=== PATIENT | female | born 1950 | race Caucasian/White ===

== ENCOUNTER 2017-12-27 15:43 | Observation (INO) | payer BC, MEDICARE ==
[2017-12-27] MEDS ORDERED: Ondansetron HCl/PF 4 MG/2 ML Vial ONE (16:09)
[2017-12-27 16:27] LABS: #Eosinphils 0.3 thou/uL (0.0-0.7); #Lymphocytes 0.9 thou/uL (1.20-3.40); #Monocytes 0.8 thou/uL (0.11-0.59); #Neutrophils 7.1 thou/uL (1.40-6.50); %Basophils 0.5 % (0.0-1.0); %Eosinophils 3.5 % (0.0-10.0); %Lymphocytes 9.7 % (21.0-51.0); %Monocytes 8.5 % (0.0-10.0); %Neutrophils 77.9 % (42.0-75.0); Hemoglobin 11.5 g/dL (12.0-16.0); Mean Corpuscular Hemoglobin 28.3 pg (27.0-31.0); Mean Corpuscular Volume 85.9 fL (78.0-98.0); Mean Platelet Volume 9.2 fL (7.4-10.4); Platelet Count 236 thou/uL (130-400); RBC Distribution Width 12.6 % (11.5-14.5); Red Blood Cell (RBC) Count 4.06 mill/uL (4.20-5.40); White Blood Cell (WBC) Count 9.1 thou/uL (4.8-10.8)
[2017-12-27 16:47] LABS: ALT (SGPT) 83 U/L (8-55); AST (SGOT) 64 U/L (5-34); Albumin 3.6 g/dL (3.4-4.8); Alkaline Phosphatase 227 U/L (40-150); Anion Gap 14 mmol/L (10-20); BUN (Urea Nitrogen) 22 mg/dL (9.8-20.1); Bilirubin, Total 1.2 mg/dL (0.2-1.2); Calc. Creatinine Clearance 0 mL/min (70-130); Calcium 9.3 mg/dL (7.8-10.44); Carbon Dioxide 22 mmol/L (23-31); Chloride 100 mmol/L (98-107); Estimated GFR-MDRD 40; Globulin 3.1 g/dL (2.4-3.5); Glucose 153 mg/dL (80-115); Protein, Total 6.7 g/dL (6.0-8.3); Sodium 133 mmol/L (136-145)
[2017-12-27 16:48] LABS: Bilirubin Negative (Negative); Blood, Urine Negative (Negative); Clarity CLEAR (Clear); Glucose, Urine (Dipstick) Negative (Negative); Leukocyte Small (Negative); Nitrite Negative (Negative); Protein, Urine (Dipstick) Negative (Neg-Trace); Specific Gravity, Urine 1.009 (1.002-1.036); Urobilinogen 0.2 mg/dL (0.2-1.0); pH, Urine 5.5 (5.0-9.0)
[2017-12-27 16:50] LABS: Bacteria/HPF None Seen HPF (None Seen); Hyaline Casts/LPF 0-3 HYALINE CAST LPF (0-3 Hyaline); Pathc Cast-AUWi Flag 0.43 (0-2.49); Squamous Epithelial 0-3 HPF (0-3); WBC/HPF 0-3 HPF (0-3)
[2017-12-27 16:51] LABS: Troponin I Less than 0.010 ng/mL (< 0.028)
[2017-12-27 16:52] LABS: Potassium 2.9 mmol/L (3.5-5.1)
[2017-12-27] MEDS ORDERED: Potassium Chloride 20 MEQ TAB ONE (16:57)
[2017-12-27] MEDS ORDERED: Potassium Chloride 20 MEQ in Premix Bag 1 BAG IVPB SCH (17:15)
[2017-12-27] MEDS ORDERED: Ondansetron ODT 4 MG TAB SL PRN (20:43)
[2017-12-27] MEDS ORDERED: Ondansetron HCl/PF 4 MG/2 ML Vial IVP PRN ×2 (20:43→21:25)
[2017-12-27] MEDS ORDERED: Dextrose 5 % And 0.9 % NaCl 1,000 ML IV SCH (20:45)
[2017-12-27] MEDS ORDERED: Ondansetron ODT 4 MG TAB PO PRN (21:25)
[2017-12-27] MEDS: Acetaminophen 325 MG TAB PO PRN (22:20)
[2017-12-27] MEDS: Sodium Chloride 0.45% 1,000 ML IV SCH (22:21)
[2017-12-28] MEDS: Acetaminophen 325 MG TAB PO PRN ×3 (03:02→13:15)
[2017-12-28 06:29] LABS: Anion Gap 10 mmol/L (10-20); BUN (Urea Nitrogen) 16 mg/dL (9.8-20.1); Calc. Creatinine Clearance 76 mL/min (70-130); Calcium 8.9 mg/dL (7.8-10.44); Carbon Dioxide 26 mmol/L (23-31); Chloride 103 mmol/L (98-107); Estimated GFR-MDRD 52; Glucose 139 mg/dL (80-115); Potassium 3.2 mmol/L (3.5-5.1); Sodium 136 mmol/L (136-145)
[2017-12-28] MEDS: Sodium Chloride 0.45% 1,000 ML IV SCH ×2 (07:45→17:36)
[2017-12-28] MEDS ORDERED: Prevnar 13-Val Conj/PF 0.5 ML SYRINGE IM ONE (09:00)
[2017-12-28] MEDS: Aspirin 81 mg Enteric Coated Tablet PO SCH (09:35)
[2017-12-28] MEDS: Potassium Chloride 20 MEQ TAB PO SCH ×3 (09:35→17:34)
[2017-12-28] MEDS: metFORMIN XR 500 MG TAB PO SCH ×2 (09:35→17:34)
[2017-12-28] MEDS: hydrALAZINE 25 MG TAB PO SCH ×2 (13:12→19:50)
[2017-12-28] MEDS: Losartan/Hydrochlorothiazide 100 mg/25 mg Tablet PO SCH (13:13)
[2017-12-28 15:38] VITALS: BMI 37.1
[2017-12-28] MEDS ORDERED: traMADol HCl 50 MG TAB PO PRN (18:17)
[2017-12-28] MEDS ORDERED: Atorvastatin Calcium 20 MG TAB PO SCH (21:00)
--- NOTE | 2017-12-29 05:08 | HP ---
DATE OF ADMISSION: 12/27/2017 REASON FOR ADMISSION AND CHIEF COMPLAINT: Fever, nausea, vomiting, diarrhea, and weakness. HISTORY OF PRESENT ILLNESS: Ms. Salter is a 67-year-old female with past medical history of hypertension, diabetes mellitus, developed fever actually started about 4-5 days ago. The patient went to the emergency room in the weekend. If it is evaluated, workup was negative, so patient was released and sent home, but going on patient continued to have fevers with headache, nausea, vomiting, diarrhea, and feeling very weak, unable to eat anything. The patient was seen in the office and was started on Tamiflu. The flu screen was negative because of her symptoms with her body aches, fever, and weakness, but patient says her weakness was getting worse, unable to eat anything, unable to ambulate because of weakness, so patient then came to the emergency room again. The patient states she still had a fever but she did not have any fever in the ER, blood pressure was 107/60. She was found to be very dehydrated and she was hypokalemic as well. Her potassium was 2.9 and creatinine is 1.33, so she was given KCl replacement and started on IV fluid normal saline and admitted for further evaluation and management. PAST MEDICAL HISTORY: 1. Diabetes mellitus. 2. Hypertension. 3. Hyperlipidemia. PAST SURGICAL HISTORY: 1. Status post cholecystectomy. 2. Status post hysterectomy. 3. Status post bilateral knee surgeries. CURRENT MEDICATIONS: Hydralazine 50 b.i.d., losartan with hydrochlorothiazide 100/25 daily, metformin 500 b.i.d., simvastatin 40 mg daily, aspirin 81 mg daily , Prilosec 20 mg daily. ALLERGIES: VICODIN. FAMILY HISTORY: Nothing of interest. SOCIAL HISTORY: The patient lives with family. No history of smoking. No history of alcohol. REVIEW OF SYSTEMS: Cardiovascular: No chest pain or shortness of breath. Respiratory: No fever or cough. Gastrointestinal: Has nausea, vomiting, abdominal pain, and diarrhea. Central Nervous System: No dizziness, has headache. PHYSICAL EXAMINATION: GENERAL: The patient is alert, awake, oriented x3. VITAL SIGNS: Temperature 98, pulse 73, respirations 20, blood pressure 102/60. HEENT: Head is normocephalic, atraumatic. Pupils equal and reactive to light. Nasopharynx is pale and dry. Hard and soft palate, no lesions seen. SKIN: Turgor is decreased. NECK: Supple. No JVD. LUNGS: Breath sounds diminished bilaterally. Percussion not dull bilaterally. No rales, no rhonchi. HEART: S1, S2 regular. ABDOMEN: Soft, diffusely tender. No guarding, no rigidity. Bowel sounds present. RECTAL: Deferred. CENTRAL NERVOUS SYSTEM: The patient is alert, awake, oriented x3. Motor system power 4/5 in all extremities. Deep tendon reflexes 2+ bilaterally. Plantar downgoing. Sensory intact. LABORATORY DATA AND X-RAY FINDINGS: CBC shows WBC 9, hemoglobin 11.5, hematocrit 35, platelets 236. Metabolic panel: Sodium 133, potassium 2.9, chloride 100, CO2 of 22, urea nitrogen 22, creatinine 1.33, glucose 153. AST 64 , ALT 83, alkaline phosphate 227. IMAGING: Chest x-ray was done a week ago was negative. EKG showed normal sinus rhythm, no acute ST-T wave changes seen. ASSESSMENT: 1. Severe hypokalemia. 2. Acute kidney injury with severe dehydration. 3. Generalized weakness. 4. Fever, possibly viral. 5. Gastroenteritis, possibly viral. 6. Hypotension. 7. Diabetes mellitus. PLAN: 1. Vital signs q.4 hours. 2. Activity: As tolerated. 3. Allergies: VICODIN. 4. Diet: ADA. 5. IV fluids half normal at 100 mL per hour. 6. Continue home meds except blood pressure medications. We will replace KCl and we will monitor for the fever. MTDD
[2017-12-29 06:01] LABS: #Eosinphils 0.5 thou/uL (0.0-0.7); #Lymphocytes 1.7 thou/uL (1.20-3.40); #Monocytes 0.8 thou/uL (0.11-0.59); #Neutrophils 6.7 thou/uL (1.40-6.50); %Basophils 0.2 % (0.0-1.0); %Eosinophils 4.7 % (0.0-10.0); %Lymphocytes 17.8 % (21.0-51.0); %Monocytes 8.2 % (0.0-10.0); Hemoglobin 10.2 g/dL (12.0-16.0); Mean Corpuscular HGB CONC 32.6 g/dL (32.0-36.0); Mean Corpuscular Hemoglobin 28.3 pg (27.0-31.0); Mean Corpuscular Volume 86.8 fL (78.0-98.0); Mean Platelet Volume 8.6 fL (7.4-10.4); Platelet Count 214 thou/uL (130-400); RBC Distribution Width 12.7 % (11.5-14.5); White Blood Cell (WBC) Count 9.7 thou/uL (4.8-10.8)
[2017-12-29 06:26] LABS: Anion Gap 12 mmol/L (10-20); BUN (Urea Nitrogen) 12 mg/dL (9.8-20.1); Calc. Creatinine Clearance 85 mL/min (70-130); Calcium 8.8 mg/dL (7.8-10.44); Carbon Dioxide 23 mmol/L (23-31); Chloride 103 mmol/L (98-107); Estimated GFR-MDRD 59; Glucose 164 mg/dL (80-115); Potassium 3.5 mmol/L (3.5-5.1); Sodium 134 mmol/L (136-145)
[2017-12-29] MEDS: Sodium Chloride 0.45% 1,000 ML IV SCH (06:30)
[2017-12-29] MEDS: metFORMIN XR 500 MG TAB PO SCH ×2 (08:54→17:01)
[2017-12-29] MEDS: Aspirin 81 mg Enteric Coated Tablet PO SCH (08:54)
[2017-12-29] MEDS: Losartan/Hydrochlorothiazide 100 mg/25 mg Tablet PO SCH (08:54)
[2017-12-29] MEDS: hydrALAZINE 25 MG TAB PO SCH (08:55)
[2017-12-29 12:23] VITALS: BP 121/64; TEMP 98.7
[2017-12-29] MEDS ORDERED: Potassium Chloride 20 MEQ TAB PO SCH (16:45)
--- NOTE | 2017-12-30 16:26 | EKG ---
Test Reason : Blood Pressure : / mmHG Vent. Rate : 067 BPM Atrial Rate : 067 BPM P-R Int : 134 ms QRS Dur : 074 ms QT Int : 420 ms P-R-T Axes : 048 -03 020 degrees QTc Int : 443 ms Normal sinus rhythm Low voltage QRS Nonspecific ST abnormality Abnormal ECG Confirmed by DOUG URBINA ([id number]), editor at large JAIMIE RANDHAWA ([id number]) on 12/30/2017 4:26:17 PM Referred By: Confirmed By:DOUG URBINA
--- NOTE | 2018-01-01 14:00 | DIS ---
DATE OF ADMISSION: 12/27/2017 DATE OF DISCHARGE: 12/29/2017 ADMITTING DIAGNOSES: 1. Severe hypokalemia. 2. Acute kidney injury. 3. Severe dehydration. 4. Generalized weakness. 5. Fever, possibly viral. 6. Gastroenteritis, possibly viral. 7. Hypotension. 8. Diabetes mellitus. FINAL DIAGNOSES: 1. Severe hypokalemia, corrected. 2. Acute kidney injury, improved. 3. General weakness, improved. 4. Fever, resolved. 5. Gastroenteritis, resolved. 6. Hypotension, improved. 7. Diabetes mellitus. BRIEF SUMMARY OF HOSPITAL COURSE: Ms. Gaetano Aburto is a 67-year-old female admitted with f ever, abdominal pain, nausea, vomiting, diarrhea. Patient was found to be dehydrated as well as hypo kalemia. Her potassium was 2.9 on admission. She was put on some KCl replacement, it came up to 3.5 . She also had acute kidney injury with a BUN of 22 and creatinine of 1.33. Both came down to florin l with fluid therapy. Patient's nausea and vomiting also resolved. She was started on diet, she is tolerating diet very well, did not have any fever, no abdominal pain. Her hypotension also improved. In view of improvement, the patient is being discharged to home. At the time of discharge, she was stable. Her vital signs were stable. Lungs were clear. Heart sounds regular. Abdomen was soft. No distention, no tenderness. Normal bowel sounds. Rectal exam deferred. Central nervous system: No focal deficits. DISCHARGE MEDICATIONS: Include omeprazole 20 mg daily, aspirin 81 mg daily, metformin 500 b.i.d., hy dralazine 50 b.i.d., losartan 100/25 daily, simvastatin 40 mg daily. DISCHARGE INSTRUCTIONS: Patient is complaining of continued with increased fluid intake and followup next week.
== END 2017-12-29 17:20 | disposition home or self-care (01) ==
LOC: ERS 15:43 → 2SW 19:17
PROVIDERS: ADMIT Internal Medicine; ATTEND Internal Medicine
DX: R50.9 Fever, unspecified (principal); I10 Essential (primary) hypertension; E11.9 Type 2 diabetes mellitus without complications; E78.5 Hyperlipidemia, unspecified; E87.6 Hypokalemia; E86.0 Dehydration; N28.9 Disorder of kidney and ureter, unspecified; K52.9 Noninfective gastroenteritis and colitis, unspecified; Z79.84 Long term (current) use of oral hypoglycemic drugs; Z79.82 Long term (current) use of aspirin; Z79.899 Other long term (current) drug therapy; Z88.5 Allergy status to narcotic agent
CPT/HCPCS: 36415; 36416; 80048; 80053; 81003; 81015; 82553; 83735; 84484; 85025; 90471; 90670; 93005; 96361; 96365; 96366; 96375; G0009; G0378; J2405; J3480

== ENCOUNTER 2018-01-02 18:05 | Inpatient (IN) | payer BC, MEDICARE ==
[~2018-01-02 18:05] MED LIST: ISOVUE-370 76%-LOCM 1 ML ONE; Iopamidol 370 76% 50 ML VIAL FS ONE
[2018-01-02 20:48] LABS: #Basophils 0.1 thou/uL (0.0-0.2); #Eosinphils 0.5 thou/uL (0.0-0.7); #Lymphocytes 1.6 thou/uL (1.20-3.40); #Monocytes 1.1 thou/uL (0.11-0.59); #Neutrophils 9.1 thou/uL (1.40-6.50); %Basophils 0.4 % (0.0-1.0); %Eosinophils 4.3 % (0.0-10.0); %Lymphocytes 12.9 % (21.0-51.0); %Monocytes 8.8 % (0.0-10.0); %Neutrophils 73.6 % (42.0-75.0); Hemoglobin 11.7 g/dL (12.0-16.0); Mean Corpuscular HGB CONC 32.3 g/dL (32.0-36.0); Mean Corpuscular Volume 86.6 fL (78.0-98.0); Mean Platelet Volume 8.6 fL (7.4-10.4); Platelet Count 405 thou/uL (130-400); Red Blood Cell (RBC) Count 4.19 mill/uL (4.20-5.40); White Blood Cell (WBC) Count 12.4 thou/uL (4.8-10.8)
--- NOTE | 2018-01-02 21:06 | RAD ---
CHEST ONE VIEW: 01/02/18 COMPARISON: 12/24/17, 02/07/16. HISTORY: Cough. FINDINGS: Atherosclerosis of the aorta. Slight elongation of the descending thoracic aorta. Normal cardiac silh ouette. The pulmonary vessels are slightly prominent. Costophrenic angles are clear. No masses or con solidation. No pneumothorax or osseous abnormalities. IMPRESSION: 1. Atherosclerosis. 2. Mild pulmonary vascular prominence. Correlate for volume overload. POS: PPP
[2018-01-02 21:10] LABS: ALT (SGPT) 57 U/L (8-55); AST (SGOT) 55 U/L (5-34); Albumin 3.6 g/dL (3.4-4.8); Alkaline Phosphatase 407 U/L (40-150); Anion Gap 14 mmol/L (10-20); BUN (Urea Nitrogen) 17 mg/dL (9.8-20.1); Bilirubin, Total 1.2 mg/dL (0.2-1.2); Calc. Creatinine Clearance 0 mL/min (70-130); Calcium 9.7 mg/dL (7.8-10.44); Carbon Dioxide 25 mmol/L (23-31); Chloride 98 mmol/L (98-107); Estimated GFR-MDRD 41; Globulin 3.5 g/dL (2.4-3.5); Glucose 135 mg/dL (80-115); Lipase 368 U/L (8-78); Potassium 3.9 mmol/L (3.5-5.1); Protein, Total 7.1 g/dL (6.0-8.3); Sodium 133 mmol/L (136-145)
[2018-01-02 21:11] LABS: Troponin I 0.011 ng/mL (< 0.028)
[2018-01-02 21:16] LABS: Bilirubin Negative (Negative); Blood, Urine Negative (Negative); Clarity CLEAR (Clear); Glucose, Urine (Dipstick) Negative (Negative); Leukocyte Moderate (Negative); Nitrite Negative (Negative); Protein, Urine (Dipstick) Negative (Neg-Trace); Specific Gravity, Urine 1.011 (1.002-1.036)
[2018-01-02 21:18] LABS: Bacteria/HPF None Seen HPF (None Seen); Hyaline Casts/LPF 7-10 HYALINE CAST LPF (0-3 Hyaline); Pathc Cast-AUWi Flag 2.47 (0-2.49); RBC/HPF 0-3 HPF (0-3)
[2018-01-03 01:24] VITALS: BMI 36.2
[2018-01-03] MEDS ORDERED: Ondansetron HCl/PF 4 MG/2 ML Vial IVP PRN (01:26)
[2018-01-03] MEDS ORDERED: Ondansetron ODT 4 MG TAB SL PRN (01:26)
[2018-01-03] MEDS ORDERED: Morphine 4 MG/ML VIAL SLOW IVP PRN (01:27)
[2018-01-03] MEDS ORDERED: Acetaminophen 650 MG in Premix Bag 1 BAG IVPB PRN (01:28)
[2018-01-03] MEDS: Lactated Ringer's 1,000 ML IV SCH ×2 (01:38→11:53)
--- NOTE | 2018-01-03 07:20 | CT ---
CT OF ABDOMEN AND PELVIS WITH CONTRAST: Date: 01/02/18 COMPARISON: 02/06/11. INDICATION: Abdominal pain, anorexia. FINDINGS: There is evidence of prior cholecystectomy. Low attenuation of the hepatic parenchyma indicates fatty infiltration. Small bowel is normal in caliber. There is moderate size nonobstructing nephrolithiasi s at the lower pole of the left kidney. There is diffuse vascular disease. Colonic diverticulosis is present. Moderate distention of the urinary bladder is present. There is atelectasis of the visualize d lung bases. No pneumoperitoneum or ascites. Regional lymph nodes are within normal limits of size. There are scattered osseous degenerative changes. IMPRESSION: 1. Nonobstructive moderate size left lower pole renal calculus. 2. Colonic diverticulosis. 3. Hepatic steatosis. POS: MALIKAH
--- NOTE | 2018-01-03 07:36 | ULT ---
ULTRASOUND ABDOMEN COMPLETE: Date: 01/03/18 INDICATION: Abdominal pain, pancreatitis. TECHNIQUE: [place]chaca-scale ultrasound evaluation of the liver, gallbladder, spleen, pancreas, common bile duct, kidne ys, abdominal aorta, and inferior vena cava (IVC). FINDINGS: There is a prominent sized liver with increased echogenicity. Gallbladder is not visualized, indicati ng prior surgical removal. Correlate with surgical history. Spleen is grossly unremarkable. The pancr eas is incompletely visualized due to obscuration by bowel gas, which limits assessment. Common duct measures 7-8 mm, within normal limits of size for status post cholecystectomy. There is a focus of in creased echogenicity in the left kidney, indicating renal calculus. Decreased echogenicity of the low er pole of the left kidney is present, measuring 1.7 cm, compatible with cyst. No ascites. Remainder of the visualized abdomen is grossly unremarkable. IMPRESSION: 1. No acute abnormality identified. 2. Left nephrolithiasis and left renal cyst. 3. Findings which may be related to hepatic steatosis. Correlate with liver function enzymes. 4. Status post cholecystectomy. POS: JOSEPH
[2018-01-03] MEDS ORDERED: Pantoprazole 40 MG VIAL IVP SCH ×3 (09:00→21:00)
[2018-01-03] MEDS: Sodium Chloride 0.9% 1,000 ML IV SCH ×2 (11:51→20:13)
[2018-01-03] MEDS ORDERED: Insulin Regular 300 UNITS/3 ML VIAL SC PRN (19:11)
[2018-01-03] MEDS ORDERED: Dextrose 5% in Water 1,000 ML IV PRN (19:11)
[2018-01-03] MEDS ORDERED: Dextrose 50% Abboject 50 ML SYRINGE IVP PRN (19:11)
[2018-01-03] MEDS: Simvastatin 40 MG TAB PO SCH (20:12)
--- NOTE | 2018-01-03 21:08 | CON ---
DATE OF CONSULTATION: 01/03/2018 REASON FOR CONSULTATION: Abdominal pain, nausea, vomiting. HISTORY: Ms. Salter is a 67-year-old female who was recently discharged from the hospital 2 days ago with what appears to be a viral gastroenteritis characterized as severe nausea and vomiting resultin g in severe hypokalemia and acute kidney injury. She was hydrated with improvement of all lab parame ters and clinical symptoms. However, upon discharge yesterday, she had recurrent mostly upper abdomi nal pain centralized to the epigastrium and medial left upper quadrant. She reports she has had this pain for the last 2 months, characterized as a dull pressure, at times up to 7/10. She has had naus ea and vomiting yesterday. There is no fever or chills with this pain. Today, she feels better. ER evaluation showed a lipase of over 300; however, pancreas appeared normal on CT scan. Imaging studi es showed a common bile duct of 7 mm on ultrasound. Labs showed mild elevation of ALT, AST, and kelton line phosphatase, but normal bilirubin. She did have an esophageal stricture that was dilated by Dr. Menchaca in 2010. Otherwise, she has not had any other previous gastrointestinal issue. PAST MEDICAL HISTORY: 1. Diabetes, adult onset. 2. Hyperlipidemia. 3. Hypertension. 4. Status post cholecystectomy/hysterectomy. 5. Status post knee surgery. 6. Chronic GE reflux. ALLERGIES: VICODIN. MEDICATIONS AT HOME: Include hydralazine, losartan/HCTZ, metformin, simvastatin, aspirin, and Prilos ec. FAMILY HISTORY: Negative for any known GI problem, liver disease, GI malignancy. SOCIAL HISTORY: The patient lives alone. She has no tobacco or alcohol usage. REVIEW OF SYSTEMS: Ten-point review of systems did not show any other pertinent positives or negativ es. PHYSICAL EXAMINATION: VITAL SIGNS: Temperature of 97.7, blood pressure 112/78, pulse of 84. GENERAL: She is alert, conversant, in no distress. HEENT: Anicteric sclerae. Oropharynx is clear. NECK: Supple. CARDIOVASCULAR: Normal S1, S2. Regular rate and rhythm. CHEST: Shows breath sound. ABDOMEN: Protuberant, essentially nontender to palpation. There is no palpable mass or organomegaly , but these are limited secondary to her body habitus. She has active bowel sounds. EXTREMITIES: No edema. LABORATORY DATA: Sodium 133, potassium 3.9, chloride 98, CO2 of 25, creatinine 1.3, bilirubin 1.2, A ST of 55, ALT of 57, alkaline phosphatase 407, lipase of 368. WBC is 12.4, hemoglobin 11.7, platelet count of 405. Ultrasound showed steatosis, CBD 7-8 mm with a left kidney stone, left renal cyst. A bdominal and pelvic CT showed changes of fatty liver and a left kidney stone without any other signif icant finding. ASSESSMENT: 1. Two-month history of upper abdominal pain mostly in the epigastrium, worse in the recent weeks in the setting of chronic gastroesophageal reflux. The patient has not lost any weight. She does have mild elevation in lipase; however, her pancreas appeared normal without any inflammatory changes on CT to suggest pancreatitis. Etiology is uncertain, but could be related to gastroduodenal pathology and less likely biliary issue. 2. Steatosis with likely steatohepatitis. 3. Diabetes/hypertension/hyperlipidemia. RECOMMENDATIONS: 1. We will proceed with EGD in a.m. 2. If negative, we will consider MRCP to evaluate for any choledocholithiasis. 3. Further recommendation to follow pending endoscopic finding.
--- NOTE | 2018-01-04 02:26 | HP ---
DATE OF ADMISSION: 01/03/2018 REASON FOR ADMISSION AND CHIEF COMPLAINT: Abdominal pain, weakness, fever. HISTORY OF PRESENT ILLNESS: Ms. Salter is a 67-year-old female with past medical history o f hypertension, recently admitted for nausea, vomiting, abdominal pain, and fever, came back a.m. wit h the same symptoms. The patient has pain mainly in the epigastric area in the left and also around the umbilical area. After discharge from the hospital, she felt better for a day or two and started having the same problems with abdominal pain, some nausea, not able to eat anything, and feeling very weak. The patient states she has had a fever as well which was low grade, but she did not have any nausea, vomiting, diarrhea, but has not eaten for the last 2 days, so patient came to the emergency r oom where she was evaluated and found to have elevated lipase, possibly pancreatitis. She kept n.p.o ., started on IV fluids and admitted for further evaluation and management. PAST MEDICAL HISTORY: 1. Hypertension. 2. Hepatic steatosis. 3. Diabetes mellitus. 4. Hyperlipidemia. PAST SURGICAL HISTORY: 1. Status post cholecystectomy. 2. Status post hysterectomy. 3. Status post bilateral knee surgeries. CURRENT MEDICATIONS: Patient takes hydralazine 50 mg b.i.d., losartan with hydrochlorothiazide 100/2 5 daily, metformin 500 b.i.d., simvastatin 40 mg daily, aspirin 81 mg, Prilosec 20 mg daily. ALLERGIES: VICODIN. FAMILY HISTORY: Nothing of interest. SOCIAL HISTORY: The patient lives with family. No history of smoking. No history of alcohol intake . REVIEW OF SYSTEMS: Cardiovascular: No chest pain or shortness of breath. Respiratory: No cough or fever. Gastrointestinal: Has abdominal pain, not eating well. Central Nervous System: No headach e. Feels dizzy. PHYSICAL EXAMINATION: GENERAL: The patient is alert, awake, oriented x3. VITAL SIGNS: Temperature 98, pulse 60, respirations 20, blood pressure . HEENT: Head is normocephalic, atraumatic. Pupils are equal and reactive to light. Nasopharynx is p jensen and dry. Hard and soft palate, no lesions seen. SKIN: Skin turgor decreased. NECK: Supple. No JVD. LUNGS: Bilateral air entry present. No rales, no rhonchi. HEART: S1, S2 regular. ABDOMEN: Soft, tender in the epigastric area and umbilical area. No guarding, no rigidity. Bowel s ounds present. RECTAL: Deferred. CENTRAL NERVOUS SYSTEM: No focal deficit. LABORATORY AND X-RAY FINDINGS: CBC shows WBC 12.5, hemoglobin 11, hematocrit 36, platelets 405. Met abolic panel: Sodium 133, potassium 3.9, chloride BUN 17, creatinine 1.3, glucose 135, AST 55, ALT 57, alkaline phosphatase is 407, lipase 368. Urinalysis negative. CT scan of the abdomen and p landy done in the ER revealed left lower lobe renal calculus, nonobstructing; colon diverticulosis; a nd hepatic steatosis. Abdominal ultrasound showed no acute abnormality identified, left nephrolithia sis and left renal cyst. ASSESSMENT: 1. Possible acute pancreatitis. 2. Epigastric pain. 3. Fever. 4. Acute kidney injury. 5. Hypotension. 6. Generalized weakness and dizziness. PLAN: 1. Vital signs q.4 hours. 2. Activity: As tolerated. 3. Allergies: VICODIN. 4. IV fluids: Normal saline at 100 mL hour. 5. Intake and output. 6. Hold her blood pressure medications. 7. Diet n.p.o. 8. GI consult. 9. CBC, base met, lipase in the morning.
[2018-01-04 04:42] LABS: #Eosinphils 0.6 thou/uL (0.0-0.7); #Neutrophils 4.8 thou/uL (1.40-6.50); %Basophils 0.5 % (0.0-1.0); %Eosinophils 6.8 % (0.0-10.0); %Lymphocytes 23.4 % (21.0-51.0); %Monocytes 12.1 % (0.0-10.0); %Neutrophils 57.1 % (42.0-75.0); Hemoglobin 10.2 g/dL (12.0-16.0); Mean Corpuscular HGB CONC 32.4 g/dL (32.0-36.0); Mean Corpuscular Hemoglobin 28.3 pg (27.0-31.0); Mean Corpuscular Volume 87.4 fL (78.0-98.0); Mean Platelet Volume 8.5 fL (7.4-10.4); Platelet Count 334 thou/uL (130-400); Red Blood Cell (RBC) Count 3.61 mill/uL (4.20-5.40); White Blood Cell (WBC) Count 8.4 thou/uL (4.8-10.8)
[2018-01-04 05:02] LABS: ALT (SGPT) 40 U/L (8-55); AST (SGOT) 36 U/L (5-34); Albumin 3.1 g/dL (3.4-4.8); Alkaline Phosphatase 308 U/L (40-150); Anion Gap 11 mmol/L (10-20); BUN (Urea Nitrogen) 10 mg/dL (9.8-20.1); Bilirubin, Total 0.7 mg/dL (0.2-1.2); Calc. Creatinine Clearance 85 mL/min (70-130); Calcium 9.1 mg/dL (7.8-10.44); Carbon Dioxide 22 mmol/L (23-31); Chloride 105 mmol/L (98-107); Estimated GFR-MDRD 61; Globulin 2.9 g/dL (2.4-3.5); Glucose 114 mg/dL (80-115); Lipase 141 U/L (8-78); Sodium 134 mmol/L (136-145)
[2018-01-04] MEDS: Sodium Chloride 0.9% 1,000 ML IV SCH ×2 (08:20→18:38)
[2018-01-04] MEDS ORDERED: Pantoprazole 40 MG VIAL IVP SCH (09:00)
[2018-01-04] MEDS ORDERED: PROPOFOL 200 MG/20 ML VIAL ONE (13:34)
--- NOTE | 2018-01-04 15:38 | OP ---
DATE OF PROCEDURE: 01/04/2018 PROCEDURE: Esophagogastroduodenoscopy with biopsy. PREOPERATIVE DIAGNOSIS: Epigastric to left upper quadrant abdominal pain. OPERATIVE NOTE: Informed consent was obtained from the patient. She was sedated with total intraven ous anesthesia. The bite block was placed and the endoscope was advanced easily to the second portio n of the duodenum and retroflexion was performed in the stomach. The esophagus was normal. The GE j unction was normal. The stomach was normal including retroflexed views. The pylorus and first and s econd portions of the duodenum were normal. Random biopsies were taken from the duodenum to rule out celiac disease. The air was suctioned from the stomach and procedure was completed. IMPRESSION: 1. Normal esophagogastroduodenoscopy. Duodenal biopsies were taken to rule out celiac disease. 2. Lipase was 4-1/2 times upper limit of normal. Given abdominal pain and this elevation in lipase, she does fit diagnostic criteria for pancreatitis; however, the CT did not show any acute inflammato ry changes. Her pain is improving today overall. RECOMMENDATIONS: 1. Await histopathology. 2. Advance to a low-fat diet. 3. Consider outpatient endoscopic ultrasound to rule out small stones in the common bile duct. Also , any small pancreatic tumor could also be evaluated for. 4. Given the elevated liver tests and elevated alkaline phosphatase, I will request MRCP. More like ly, the liver tests are elevated due to her fatty liver disease noted by ultrasound. The patient rep ortedly has no alcohol use.
[2018-01-04] MEDS: Aspirin 81 mg Enteric Coated Tablet PO SCH (18:38)
--- NOTE | 2018-01-04 19:34 | MRI ---
MRI ABDOMEN NONCONTRAST: 01/04/18 INDICATION: History of abdominal pain, elevated liver function enzymes, pancreatitis. FINDINGS: Within limitations of a noncontrast technique, no focal hepatic lesion identified. There is bilateral small renal cyst formation with component of intrinsic T1 hyperintensity involving the left renal cy st which indicates a complex cyst, although this is incompletely characterized by noncontrast imaging . There is trace pleural fluid, trace ascites, and trace free pelvic fluid. MRCP imaging is markedly limited by patient motion, although there is no definite evidence of a significant filling defect of the central biliary system. Pancreas is grossly unremarkable by noncontrast evaluation. IMPRESSION: 1. Limited evaluation due to patient motion. No definite significant abnormality of the central biliary ductal system. 2. Mild third spacing of fluid. 3. Bilateral renal cysts with presumed complex cyst of left kidney, as evidence of intrinsic T1 hyperintensity. POS: JERRY
[2018-01-04] MEDS: Simvastatin 40 MG TAB PO SCH (19:37)
[2018-01-05] MEDS: Sodium Chloride 0.9% 1,000 ML IV SCH (02:20)
[2018-01-05] MEDS: Aspirin 81 mg Enteric Coated Tablet PO SCH (09:31)
--- NOTE | 2018-01-05 13:14 | PRG ---
DATE OF SERVICE: 01/05/2018. SUBJECTIVE: Ms. Salter feels much better today. She has no significant abdominal pain this morning. No nausea or vomiting. She is tolerating her diet well. OBJECTIVE: VITAL SIGNS: Temperature 97.8, pulse 61, blood pressure 131/73. GENERAL: She is in no acute distress, alert and oriented x3. LUNGS: Clear to auscultation bilaterally. HEART: Regular rate and rhythm without murmur. ABDOMEN: Soft, nontender, nondistended. Bowel sounds are present. EXTREMITIES: No lower extremity edema. IMPRESSION: Acute idiopathic pancreatitis. She presented with a lipase of 4.5 times upper limit of normal, and epigastric pain which fits the diagnostic criteria for this; however, she did have a very mild case of pancreatitis. There is no alcohol history. She had mild elevation of the AST and kelton line phosphatase and therefore MRCP was obtained, which is negative for evidence of biliary duct ston e. There was some motion artifact with this study. Upper endoscopy yesterday was normal. Biopsies were taken to rule out celiac disease and are pending. RECOMMENDATIONS: 1. She should be ready for discharge home today. 2. I have discussed with my office staff who will work on faxing her information to the referral beth ter for endoscopic ultrasound to rule out a small common bile duct stone not identified by MRI or any pancreatic mass not identified by CT given the new onset of pancreatitis in a 67-year-old without ot her explanation. 3. Check her triglyceride level. 4. I will sign off. Please call if GI can be of assistance. 5. Follow up with Dr. Menchaca in the office in around 2 weeks or so.
[2018-01-05] MEDS: Simvastatin 40 MG TAB PO SCH (20:03)
[2018-01-06 05:28] LABS: ALT (SGPT) 36 U/L (8-55); AST (SGOT) 46 U/L (5-34); Albumin 3.1 g/dL (3.4-4.8); Alkaline Phosphatase 260 U/L (40-150); Anion Gap 11 mmol/L (10-20); BUN (Urea Nitrogen) 10 mg/dL (9.8-20.1); Bilirubin, Total 0.5 mg/dL (0.2-1.2); Calc. Creatinine Clearance 91 mL/min (70-130); Calcium 9.3 mg/dL (7.8-10.44); Carbon Dioxide 23 mmol/L (23-31); Chloride 107 mmol/L (98-107); Cholesterol 95 mg/dl (< 200 Desired); Estimated GFR-MDRD 66; Globulin 3.1 g/dL (2.4-3.5); Glucose 127 mg/dL (80-115); HDL Cholesterol 24 mg/dL (>60 Neg Risk); LDL Cholesterol, Calculated 53 mg/dL; Lipase 101 U/L (8-78); Potassium 4.2 mmol/L (3.5-5.1); Protein, Total 6.2 g/dL (6.0-8.3); Sodium 137 mmol/L (136-145); Triglycerides 89 mg/dL (Less than 150)
[2018-01-06 08:19] VITALS: BP 126/72; TEMP 98.2
[2018-01-06] MEDS: Aspirin 81 mg Enteric Coated Tablet PO SCH (08:37)
--- NOTE | 2018-01-06 17:06 | EKG ---
Test Reason : Blood Pressure : / mmHG Vent. Rate : 077 BPM Atrial Rate : 077 BPM P-R Int : 134 ms QRS Dur : 082 ms QT Int : 378 ms P-R-T Axes : 029 000 003 degrees QTc Int : 427 ms Sinus rhythm with Premature atrial complexes Low voltage QRS Borderline ECG Confirmed by PJ GRAY, MABLE ([id number]), society editor JAIMIE RANDHAWA ([id number]) on 01/06/2018 5:05:21 PM Referred By: Confirmed By:MABLE OLIVA MD
--- NOTE | 2018-01-09 04:16 | DIS ---
DATE OF ADMISSION: 01/03/2018 DATE OF DISCHARGE: 01/06/2018 ADMITTING DIAGNOSES: 1. Possible acute pancreatitis. 2. Epigastric pain. 3. Fever. 4. Acute kidney injury. 5. Hypotension. 6. Generalized weakness and dizziness. FINAL DIAGNOSES: 1. Acute pancreatitis, improved. 2. Abdominal pain, epigastric, improved. 3. Fever, resolved. 4. Hypotension, improved. 5. Acute kidney injury, improved. 6. Generalized weakness and dizziness, improved. BRIEF SUMMARY OF HOSPITAL COURSE: Ms. Salter is a 67-year-old female admitted because of w eakness, fever, abdominal pain. Patient was in the hospital a few days earlier for the similar probl em resolved and went home, but came back again with similar problems. Patient was started on IV flui ds for acute kidney injury. Her BUN was 17, with fluids came down to 10 and creatinine came down fro m 1.3-0.86. GI consult was done. The patient was seen by Dr. Park. His impression was the patient had 2-month history of abdominal pain. He felt the etiology uncertain though elevated lipase suggest love of pancreatitis, but CT scan did not show any inflammation of the pancreas. He suggested EGD and consider MRCP later. EGD was done. EGD was normal. Biopsy of the duodenum was done to rule out ce liac disease and biopsy came back normal. The GI specialist ordered an MRI, but it was unremarkable. GI specialist suggested endoscopic ultrasound as an outpatient in [place], but the patient's sympto ms have improved. She did not have any more fever in the hospital and she was started on diet and sh e tolerated diet very well. Her weakness and dizziness also improved. Her hypotension improved. In view of that, the patient is discharged. At the time of discharge, she was stable. Vital signs wer e stable. Lungs clear. Heart sounds regular. Abdomen is soft, no distention, no tenderness. Bowel sounds present. DISCHARGE MEDICATIONS: Include Prilosec 20 mg daily, aspirin 81 mg daily, metformin ER 500 mg b.i.d. , simvastatin 40 mg daily. Her BP medications, hydralazine and losartan will be on hold. She will b e followed up next week.
== END 2018-01-06 11:29 | disposition home or self-care (01) | DRG 439 ==
LOC: ERS 18:05 → T4-A 01-03 00:15 → OBSVTOIN 01-03 18:00
PROVIDERS: ADMIT Internal Medicine; ATTEND Internal Medicine
PROC: 0DB98ZX Excision of Duodenum, Via Natural or Artificial Opening Endoscopic, Diagnostic (ICD-10-PCS; principal; 2018-01-04)
DX: K85.90 Acute pancreatitis without necrosis or infection, unspecified (principal); N17.9 Acute kidney failure, unspecified; E11.9 Type 2 diabetes mellitus without complications; I10 Essential (primary) hypertension; E78.5 Hyperlipidemia, unspecified; Z88.5 Allergy status to narcotic agent; Z79.899 Other long term (current) drug therapy; Z79.84 Long term (current) use of oral hypoglycemic drugs; Z79.82 Long term (current) use of aspirin; I95.9 Hypotension, unspecified
CPT/HCPCS: 36415; 36416; 71045; 74177; 74181; 76700; 80053; 80061; 81003; 81015; 83690; 84484; 85025; 88305; 93005; 96360; 96361; A4216; C9113; J2704

== ENCOUNTER 2018-03-02 06:29 | Day surgery (SDC) | payer BC ==
[2018-03-01 11:40] VITALS: BMI 35.6
[2018-03-02] MEDS ORDERED: Iothalamate Meglumine 60% 50 ML VIAL FS ONE (08:06)
[2018-03-02] MEDS ORDERED: Indomethacin 50 MG SUPP ONE (08:06)
[2018-03-02] MEDS ORDERED: Fentanyl 100 MCG/2 ML VIAL ONE (09:27)
[2018-03-02] MEDS ORDERED: Midazolam HCl 2 mg/2 ml Vial ONE (09:27)
[2018-03-02] MEDS ORDERED: Glycopyrrolate 0.2 MG/ML 5 ML SYRINGE ONE (15:45)
[2018-03-02] MEDS ORDERED: PROPOFOL 200 MG/20 ML VIAL ONE (15:45)
[2018-03-02] MEDS ORDERED: Dexamethasone 20 MG/5 ML VIAL ONE (15:45)
[2018-03-02] MEDS ORDERED: Ondansetron PF 4 MG/2 ML Vial ONE (15:45)
--- NOTE | 2018-03-02 20:54 | OP ---
DATE OF PROCEDURE: 03/02/2018 PREOPERATIVE DIAGNOSES: 1. Pancreatitis. 2. Abnormal endoscopic ultrasound showing biliary sludge. DESCRIPTION OF PROCEDURE: After informed consent was obtained, the patient was placed in the left lateral decubitus position. Anesthesia was administered by the Anesthesia Department. Side-viewing endoscope was inserted into esophagus under direct visualization with ease and passed to the second portion of the duodenum with ease. The second portion of the duodenum was normal. No mucosal abnormalities were noted. Tapered-tip cannula was inserted into the common bile duct and cholangiogram revealed dilated biliary tree. A sphincterotomy was performed without difficulty. The duct was swept with a 12 mm and then 15 mm balloons. No obvious stones were noted. Occlusion cholangiogram thus showed no filling defects. ASSESSMENT: 1. Dilated biliary tree. 2. Status post sphincterotomy. RECOMMENDATIONS: Follow up in the office in 1 month. Job ID: [id number]
== END 2018-03-02 12:45 | disposition home or self-care (01) ==
LOC: SDC 06:29
PROVIDERS: ATTEND Internal Medicine Gastroenterology
PROC: 0F798ZZ Dilation of Common Bile Duct, Via Natural or Artificial Opening Endoscopic (ICD-10-PCS; principal; 2018-03-02)
DX: K83.8 Other specified diseases of biliary tract (principal); Z79.82 Long term (current) use of aspirin; Z79.84 Long term (current) use of oral hypoglycemic drugs; Z88.5 Allergy status to narcotic agent; Z79.899 Other long term (current) drug therapy
CPT/HCPCS: 76000; J1100; J2250; J2405; J2704; J3010; Q9961

== ENCOUNTER 2018-04-14 10:29 | Emergency (ER) | payer BC ==
[2018-04-14] MEDS ORDERED: Fentanyl 100 MCG/2 ML VIAL ONE (11:33)
[2018-04-14 12:01] LABS: #Basophils 0.1 thou/uL (0.0-0.2); #Eosinphils 0.3 thou/uL (0.0-0.7); #Lymphocytes 2.4 thou/uL (1.20-3.40); #Monocytes 0.8 thou/uL (0.11-0.59); #Neutrophils 5.4 thou/uL (1.40-6.50); %Eosinophils 3.8 % (0.0-10.0); %Lymphocytes 26.8 % (21.0-51.0); %Monocytes 9.2 % (0.0-10.0); %Neutrophils 59.3 % (42.0-75.0); Mean Corpuscular HGB CONC 32.5 g/dL (32.0-36.0); Mean Corpuscular Hemoglobin 26.6 pg (27.0-31.0); Mean Corpuscular Volume 81.7 fL (78.0-98.0); Mean Platelet Volume 9.1 fL (7.4-10.4); Platelet Count 265 thou/uL (130-400); RBC Distribution Width 14.2 % (11.5-14.5); Red Blood Cell (RBC) Count 4.53 mill/uL (4.20-5.40); White Blood Cell (WBC) Count 9.1 thou/uL (4.8-10.8)
[2018-04-14 12:07] LABS: PTT 27.1 SEC (22.9-36.1)
[2018-04-14 12:20] LABS: ALT (SGPT) 26 U/L (8-55); AST (SGOT) 32 U/L (5-34); Alkaline Phosphatase 176 U/L (40-150); Anion Gap 16 mmol/L (10-20); BUN (Urea Nitrogen) 22 mg/dL (9.8-20.1); Bilirubin, Total 0.3 mg/dL (0.2-1.2); Calc. Creatinine Clearance 0 mL/min (70-130); Calcium 9.8 mg/dL (7.8-10.44); Carbon Dioxide 21 mmol/L (23-31); Chloride 106 mmol/L (98-107); Estimated GFR-MDRD 68; Globulin 3.1 g/dL (2.4-3.5); Glucose 114 mg/dL (80-115); Lipase 95 U/L (8-78); Potassium 3.6 mmol/L (3.5-5.1); Protein, Total 7.1 g/dL (6.0-8.3); Sodium 139 mmol/L (136-145)
--- NOTE | 2018-04-14 13:36 | RAD ---
FRONTAL AND LATRAL IMAGING OF THE LEFT FEMUR: DATE: 04/14/2018. HISTORY: Pain, trauma. FINDINGS: There is a left knee arthroplasty present with no evidence for hardware failure. There is no displaced fracture or evidence of dislocation seen. IMPRESSION: No acute osseous abnormality. POS: JERRY
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
== END 2018-04-14 14:35 | disposition home or self-care (01) ==
LOC: ERS 10:29
DX: S29.012A Strain of muscle and tendon of back wall of thorax, initial encounter (principal); S50.12XA Contusion of left forearm, initial encounter; K21.9 Gastro-esophageal reflux disease without esophagitis; E11.9 Type 2 diabetes mellitus without complications; E78.5 Hyperlipidemia, unspecified; I10 Essential (primary) hypertension; Z79.84 Long term (current) use of oral hypoglycemic drugs; Z79.82 Long term (current) use of aspirin; Z79.899 Other long term (current) drug therapy; V89.2XXA Person injured in unspecified motor-vehicle accident, traffic, initial encounter; W22.19XA Striking against or struck by other automobile airbag, initial encounter
CPT/HCPCS: 71260; 74177; 80053; 83690; 85025; 85610; 85730; 96361; 96374; J3010

== ENCOUNTER 2020-06-19 09:54 | Outpatient (CLI) | payer MEDICARE ==
[2020-06-19 13:02] LABS: Anion Gap 15 mmol/L (10-20); BUN (Urea Nitrogen) 31 mg/dL (9.8-20.1); Calc. Creatinine Clearance 0 mL/min (70-130); Calcium 9.5 mg/dL (7.8-10.44); Carbon Dioxide 25 mmol/L (23-31); Chloride 102 mmol/L (98-107); Glucose 79 mg/dL (80-115); Potassium 3.9 mmol/L (3.5-5.1); Sodium 138 mmol/L (136-145)
[2020-06-19 13:07] LABS: Hemoglobin 13.6 g/dL (12.0-15.5); Mean Corpuscular HGB CONC 32.8 g/dL (32.0-36.0); Mean Corpuscular Hemoglobin 29.4 pg (27.0-33.0); Mean Corpuscular Volume 89.8 fl (81.6-98.3); Mean Platelet Volume 11.9 fl (7.4-10.4); Platelet Count 296 10x3/uL (150-450); RBC Distribution Width 12.6 % (11.5-14.5); Red Blood Cell (RBC) Count 4.62 10x6/uL (3.90-5.03); White Blood Cell (WBC) Count 13.5 10x3/uL (3.5-10.5)
[2020-06-19 13:23] LABS: INR-International Normal Ratio 0.9; PTT 26.3 sec (22.0-33.0)
[2020-06-19 23:52] LABS: SARS-CoV-2 PCR by NAA Not Detected (NotDetected)
== END 2020-06-19 09:55 | disposition home or self-care (01) ==
LOC: LABBT 09:54
PROVIDERS: ATTEND Urology
DX: Z01.818 Encounter for other preprocedural examination (principal); N20.1 Calculus of ureter; Z20.822 Contact with and (suspected) exposure to COVID-19
CPT/HCPCS: 80048; 85027; 85610; 85730; 93005; U0003; U0005; 87635; 93010

== ENCOUNTER 2020-06-24 05:43 | Day surgery (SDC) | payer MEDICARE ==
[2020-06-23 11:01] VITALS: BMI 33.6
[2020-06-24] MEDS ORDERED: cefTRIAXone\\ROCEPHIN 2 GM VIAL ONE (06:41)
[2020-06-24] MEDS ORDERED: Sodium Chloride 0.9% 100 ML ONE (06:41)
[2020-06-24] MEDS ORDERED: Iothalamate Meglumine 60% 50 ML VIAL FS ONE (06:57)
[2020-06-24] MEDS ORDERED: Midazolam HCl 2 mg/2 ml Vial ONE (08:25)
[2020-06-24] MEDS ORDERED: Fentanyl 100 MCG/2 ML VIAL ONE (08:25)
[2020-06-24] MEDS ORDERED: PHENYLEPHRINE-NS 100 MCG/ML 10 ML SYRINGE ONE (08:37)
[2020-06-24] MEDS ORDERED: Glycopyrrolate 0.2 MG/ML 5 ML SYRINGE ONE (08:37)
[2020-06-24] MEDS ORDERED: Ondansetron PF 4 MG/2 ML Vial ONE (08:37)
[2020-06-24] MEDS ORDERED: PROPOFOL 200 MG/20 ML VIAL ONE (08:37)
[2020-06-24] MEDS ORDERED: Lidocaine 1% PF 5 ML VIAL ONE (08:37)
[2020-06-24] MEDS ORDERED: Rocuronium Bromide 10 MG/ML (10ML VIAL) ONE (08:37)
[2020-06-24] MEDS ORDERED: Oxybutynin 5 MG TAB ONE (09:50)
[2020-06-24] MEDS ORDERED: Phenazopyridine HCl 100 MG TAB ONE (09:50)
[2020-06-30 18:13] LABS: CA Oxalate Dihydrate 10 % (.); CA Oxalate Monohydrate 90 % (.); Color Brown (.)
== END 2020-06-24 12:20 | disposition home or self-care (01) ==
LOC: SDC 05:43
PROVIDERS: ATTEND Urology
PROC: 0TC18ZZ Extirpation of Matter from Left Kidney, Via Natural or Artificial Opening Endoscopic (ICD-10-PCS; principal; 2020-06-24)
PROC: 0TP98DZ Removal of Intraluminal Device from Ureter, Via Natural or Artificial Opening Endoscopic (ICD-10-PCS; 2020-06-24)
PROC: 0T778DZ Dilation of Left Ureter with Intraluminal Device, Via Natural or Artificial Opening Endoscopic (ICD-10-PCS; 2020-06-24)
DX: N20.0 Calculus of kidney (principal); E11.9 Type 2 diabetes mellitus without complications; I10 Essential (primary) hypertension; Z79.82 Long term (current) use of aspirin; Z79.84 Long term (current) use of oral hypoglycemic drugs; Z79.899 Other long term (current) drug therapy; Z88.5 Allergy status to narcotic agent
CPT/HCPCS: 71045; 74018; 74420; 82365; 88300; J0696; J2250; J2405; J2704; J3010; J3490; Q9961

== ENCOUNTER 2020-07-01 08:01 | Outpatient (CLI) | payer MEDICARE | END 2020-07-01 08:02 | disposition home or self-care (01) | LOC: RAD 08:01 | PROVIDERS: ATTEND Urology | DX: N20.1 Calculus of ureter (principal) | CPT/HCPCS: 74018 ==

== ENCOUNTER 2020-07-02 06:59 | Outpatient (CLI) | payer MEDICARE | END 2020-07-02 07:00 | disposition home or self-care (01) | LOC: RAD 06:59 | PROVIDERS: ATTEND Urology | DX: N20.1 Calculus of ureter (principal); R93.422 Abnormal radiologic findings on diagnostic imaging of left kidney; Z96.0 Presence of urogenital implants | CPT/HCPCS: 74018 ==